=== PATIENT | female | born 1980 | race African-American/Black ===

== ENCOUNTER → 2018-06-07 | Outpatient (CLI) | payer OTHER ==
[~2018-06-07] MED LIST: BENTYL 10 MG CA10 MG PO; HYDROCHLOROTHIA25 M1 PO; LOVENOX SC; NORCO 5-325 TA1 EACH PO
== END ==
LOC: RAD 07:44
DX: Z12.31 Encounter for screening mammogram for malignant neoplasm of breast (principal)